=== PATIENT | female | born 1960 | race Caucasian/White ===

== ENCOUNTER → 2020-08-14 | Outpatient (CLI) | payer OTHER ==
--- NOTE | 2020-08-14 10:27 | RAD ---
EXAMINATION: KNEE RIGHT 2V CLINICAL HISTORY: Degeneration of the right knee TECHNIQUE: KNEE RIGHT 2V Number of Images/Views: 2 COMPARISON: None FINDINGS: Marked medial and lateral compartment narrowing with [id number] contact medially. Tricompartmental small marginal osteophytes. No acute fracture. No significant joint effusion. IMPRESSION: Advanced bicompartmental degenerative changes right knee, greatest medially. Electronically signed by: Moise Tabares DO (08/14/2020 10:24 AM) [id number]
== END ==
LOC: RAD 09:45
DX: M17.11 Unilateral primary osteoarthritis, right knee (principal); M25.761 Osteophyte, right knee
CPT/HCPCS: 73560